=== PATIENT | male | born 1995 | race Caucasian/White ===

== ENCOUNTER → 2016-06-03 | Outpatient (REF) | payer OTHER | LOC: M LAB REF 19:07 | PROVIDERS: ATTEND Physician Assistant | DX: J02.9 Acute pharyngitis, unspecified (principal) ==

== ENCOUNTER 2016-11-05 16:22 | Emergency (ER) | payer OTHER ==
[~2016-11-05] VITALS: Ht 182.9 cm; Wt 108.0 kg
[2016-11-05] MEDS ORDERED: NAPR500T PO (16:35)
[2016-11-05 17:45] VITALS: BP 159/87
--- NOTE | 2016-11-05 17:52 | REP ---
Clinical: Trauma with thoracic pain. Technique: AP, lateral, and swimmers views. Findings: Alignment and kyphosis is maintained. Vertebral bodies intact. No acute fracture / compression injury or subluxation. No degenerative changes. Paravertebral soft tissues are normal. Impression: Normal thoracic spine series. Signed by Akhil Valdez MD 11/05/2016 05:44 P
== END 2016-11-05 17:57 | disposition home or self-care (01) ==
LOC: M ED 16:22
DX: S23.3XXA Sprain of ligaments of thoracic spine, initial encounter (principal); T14.8 Other injury of unspecified body region; V48.5XXA Car driver injured in noncollision transport accident in traffic accident, initial encounter; Y92.410 Unspecified street and highway as the place of occurrence of the external cause; Y99.9 Unspecified external cause status; Y93.9 Activity, unspecified